=== PATIENT | female | born 1935 | race Caucasian/White ===

== ENCOUNTER 2021-10-17 15:36 | Inpatient (IN) | payer OTHER ==
[~2021-10-17] VITALS: Ht 149.9 cm; Wt 43.1 kg
--- NOTE | 2021-10-17 15:50 | NUR ---
TO ER BED 9, LEOPOLDO LYNCH [facility] FOR ABNORMAL LABS, H&H 3.4 / 12.9, AAOX3, CONNECTED TO MONITOR, AWAITING MD ORDER
--- NOTE | 2021-10-17 16:42 | NUR ---
IV LINE STARTED, BLOOD DRAWN AND SENT TO LAB.
[2021-10-17] MEDS ORDERED: ACET-2605 PO (17:22)
[2021-10-17] MEDS ORDERED: SIME125C81 PO (17:22)
[2021-10-17] MEDS ORDERED: MIRT-121 PO (17:22)
[2021-10-17] MEDS ORDERED: MULT-447 PO (17:22)
[2021-10-17] MEDS ORDERED: ACET325T53 PO (17:22)
[2021-10-17] MEDS ORDERED: ASPI-1169 PO (17:22)
[2021-10-17 17:27] LABS: BASOPHILS # (AUTO) 0.1 K/uL (0.0-0.2); BASOPHILS % (AUTO) 0.8 % (0.0-2.0); EOSINOPHILS % (AUTO) 0.6 % (0.0-6.0); LYMPHOCYTES # (AUTO) 1.7 K/uL (0.8-4.8); MEAN CORPUSCULAR HGB CONC 25 g/dl (31.0-36.0); MEAN CORPUSCULAR VOLUME 55 fL (82-100); MONOCYTES # (AUTO) 1.1 K/uL (0.1-1.30); NEUTROPHILS # (AUTO) 6.6 K/uL (1.8-8.9); NEUTROPHILS % (AUTO) 68.6 % (43.0-81.0); PLATELET COUNT (AUTO) 529 K/uL (150-450); RED BLOOD CELL COUNT(AUTO) 2.51 MIL/uL (4.0-5.2); WHITE BLOOD COUNT (AUTO) 9.6 K/uL (4.3-11.0)
[2021-10-17 17:32] LABS: HEMATOCRIT 14 % (33-45); HEMOGLOBIN 3.5 g/dL (11.5-14.8)
[2021-10-17 17:37] LABS: ALANINE AMINOTRANSFERASE 9 U/L (12-78); ALBUMIN 2.4 g/dL (3.4-5.0); ALKALINE PHOSPHATASE 69 U/L (46-116); ASPARTATE AMINOTRANSFERASE 12 U/L (15-37); BILIRUBIN,TOTAL 0.5 mg/dL (0.2-1.0); CALCIUM, SERUM 8.1 mg/dL (8.5-10.1); CARBON DIOXIDE 22 mmol/L (21-32); CHLORIDE 105 mmol/L (98-107); CREATININE 0.8 mg/dL (0.6-1.3); GLUCOSE 137 mg/dL (74-106); POTASSIUM 4.2 mmol/L (3.5-5.1); SODIUM SERUM 136 mmol/L (136-145); TOTAL PROTEIN, SERUM 6.9 g/dL (6.4-8.2); UREA NITROGEN, BLOOD 22 mg/dL (7-18)
--- NOTE | 2021-10-17 17:52 | NUR ---
COVID SWAB PCR AND ANTIGEN DONE AND SENT
--- NOTE | 2021-10-17 18:12 | NUR ---
[phone] EFREN
--- NOTE | 2021-10-17 18:25 | NUR ---
DR. LOUIS FROM [facility] SPEAKING WITH BALBIR BRADLEY. AUTH GIVEN FOR PT TO STAY. CASE # [id number]
--- NOTE | 2021-10-17 18:37 | NUR ---
MOVE SHEET SUBMITTED AND CALLED FOR TELE BED.
--- NOTE | 2021-10-17 18:40 | NUR ---
[facility] CALLED PARASITOLOGIST PAGED.
--- NOTE | 2021-10-17 19:04 | NUR ---
call from blood bank, 2 units available
--- NOTE | 2021-10-17 19:15 | NUR ---
[facility] CALLED ROLL FORMING SUPERVISOR PAGED.
[2021-10-17 19:35] LABS: BAND % (MANUAL) 1 % (0.0-5.0); EOSINOPHILS % (MANUAL) 1 % (0-4); LYMPHOCYTES % (MANUAL) 16 % (16-48); MONOCYTES % (MANUAL) 6 % (0-11.0); NEUTROPHILS % (MANUAL) 76 (42-76)
--- NOTE | 2021-10-17 19:45 | NUR ---
BLOOD TRANSFUSION INITIATED, V/S STABLE AT THE MOMENT WILL CONTINUE TO MONITOR.
[2021-10-17] MEDS ORDERED: MAGNESIUM HYDROXIDE 30 ML UDC PO PRN (21:00)
[2021-10-17] MEDS ORDERED: MAG HYDROX/AL HYDROX/SIMETH 30 ML UDC PO PRN (21:00)
[2021-10-17] MEDS ORDERED: Z GUARD REMEDY 2 OZ OINT TP PRN (21:00)
[2021-10-17] MEDS ORDERED: ACETAMINOPHEN 325 MG TABLET PO PRN (21:00)
[2021-10-17] MEDS ORDERED: ONDANSETRON HCL/PF 4 MG/2 ML VIAL IVP PRN (21:00)
--- NOTE | 2021-10-17 22:08 | NUR ---
REPORT GIVEN TO ELMIRA VICKERS
--- NOTE | 2021-10-17 22:10 | NUR ---
PATIENT BEING TRANSFERRED TO [facility]
[2021-10-17 22:17] VITALS: BP 137/66
--- NOTE | 2021-10-17 22:17 | NUR ---
CORN LAB TECHNICIAN NOTES PATIENT ADMITTED FROM ER, A/O X3. CAME FROM [facility]. ADMITTED WITH DIAGNOSIS OF ANEMIA. H&H IS 3.5. ORDERED FOR 2 UNITS OF PRBC. ONE GIVEN IN ER AND ONE TO BE GIVEN. PATIENT ON ROOM AIR, O2 SAT 99%. PATIENT ON TELE MONITOR, SR 98. NO SOB, NO DISTRESS NOTED, VITAL SIGNS STABLE, AFEBRILE. RIGHT FOREARM G #20 IV ACCESS INTACT AND PATENT. SKIN AND BODY CHECK DONE, SKIN INTACT. ALL NEEDS ATTENDED TO, WITHIN REACH, BED IS LOWEST POSITION & LOCKED IN PLACE. WILL CONTINUE TO MONITOR
[2021-10-17 23:18] VITALS: BP 137/66
--- NOTE | 2021-10-17 23:18 | NUR ---
tele rnnotes 2nd unit of prbc started at 2318 hrs with ase noted v/s stable afebrile.
[2021-10-17 23:33] VITALS: BP 132/56
[2021-10-18] VITALS (9 sets, daily range): BP systolic 112–144; BP diastolic 48–88
--- NOTE | 2021-10-18 | NUR ---
family member caretaker NOTES PATIENT NOTED PULLING ON IV ACCESS AND ATTEMPTING TO GET OUT OF BED DURING BLOOD TRANSFUSION. PATIENT WAS EDUCATED ON DANGERS OF GETTING OUT OF BED AND PULLING ON IV LINES. WILL CONTINUE TO MONITOR
--- NOTE | 2021-10-18 02:18 | NUR ---
teleprinter installer notes 2nd unit of prbc completed at 0218hrs with no ase noted , will continue to monitor.
[2021-10-18] MEDS: IV NS 0.9% 1,000 ML IV PRN ×2 (02:35→15:36)
--- NOTE | 2021-10-18 04:02 | NUR ---
BILLIARD TABLE REPAIRER NOTES PATIENT REMAINS PULLING ON LINES AND ATTEMPTING TO GET OUT OF BED. DNP CECY BOBBIN DUMPER MADE AWARE, WITH ORDER BILATERAL SOFT WRIST RESTRAINTS. ORDER NOTED AND CARRIED OUT. WILL CONTINUE TO MONITOR.
--- NOTE | 2021-10-18 07:01 | NUR ---
RN CLOSING NOTE: PATIENT STABLE AND SLEEPING IN BED. SATURATING WELL ON ROOM AIR, NO DISTRESS, NO SOB NOTED. BED AT LOWEST POSITION, SIDE RAILS UP X2, CALL LIGHT WITHIN REACH, WILL CONTINUE TO MONITOR WILL ENDORSE TO DAY SHIFT FOR CONTINUITY OF CARE.
--- NOTE | 2021-10-18 07:29 | NUR ---
RN OPENING NOTE PATIENT RECEIVED IN BED, ASLEEP. PATIENT ON ROOM AIR WITH NO SIGNS OF LABORED BREATHING. SOFT WRIST RESTRAINS ON, SKIN WARM AND INTACT. RIGHT FOREARM 20G IV IN PLACE, PATENT WITH NO SIGNS OF INFILTRATION RUNNING NS AT 75 CC/HR. NO SIGNS OF DISTRESS NOTED AT THIS TIME. BED LOCKED AND IN LOWEST POSITION, 2 SIDE RAILS UP, CALL LIGHT WITHIN REACH. WILL CONTINUE TO MONITOR.
[2021-10-18] MEDS: PANTOPRAZOLE 40 MG TABLET.DR PO SCH (07:51)
[2021-10-18 07:54] LABS: BASOPHILS # (AUTO) 0.1 K/uL (0.0-0.2); BASOPHILS % (AUTO) 0.9 % (0.0-2.0); EOSINOPHILS % (AUTO) 0.7 % (0.0-6.0); HEMATOCRIT 22 % (33-45); LYMPHOCYTES # (AUTO) 0.9 K/uL (0.8-4.8); LYMPHOCYTES % (AUTO) 12.1 % (20.0-44.0); MEAN CORPUSCULAR HGB CONC 32 g/dl (31.0-36.0); MEAN CORPUSCULAR VOLUME 69 fL (82-100); MONOCYTES # (AUTO) 0.9 K/uL (0.1-1.30); MONOCYTES % (AUTO) 12.2 % (2.0-12.0); NEUTROPHILS # (AUTO) 5.4 K/uL (1.8-8.9); NEUTROPHILS % (AUTO) 74.1 % (43.0-81.0); PLATELET COUNT (AUTO) 314 K/uL (150-450); RED BLOOD CELL COUNT(AUTO) 3.16 MIL/uL (4.0-5.2); WHITE BLOOD COUNT (AUTO) 7.3 K/uL (4.3-11.0)
[2021-10-18 08:51] LABS: BILIRUBIN,TOTAL 1.8 mg/dL (0.2-1.0); CALCIUM, SERUM 6.8 mg/dL (8.5-10.1); CREATININE 0.6 mg/dL (0.6-1.3); MAGNESIUM 1.9 mg/dL (1.8-2.4); POTASSIUM 3.1 mmol/L (3.5-5.1); TOTAL PROTEIN, SERUM 5.7 g/dL (6.4-8.2)
[2021-10-18] MEDS ORDERED: POTASSIUM CHLORIDE 20 MEQ TAB.PRT.SR PO ONE (09:30)
[2021-10-18 10:14] LABS: LYMPHOCYTES % (MANUAL) 15 % (16-48); MONOCYTES % (MANUAL) 12 % (0-11.0); NEUTROPHILS % (MANUAL) 73 (42-76)
[2021-10-18] MEDS: ENSURE ENLIVE 237 ML LIQUID (VANILLA) PO SCH ×2 (12:55→18:25)
[2021-10-18 13:17] LABS: BASOPHILS # (AUTO) 0.1 K/uL (0.0-0.2); EOSINOPHILS % (AUTO) 1.3 % (0.0-6.0); HEMATOCRIT 25 % (33-45); HEMOGLOBIN 7.8 g/dL (11.5-14.8); LYMPHOCYTES # (AUTO) 1.1 K/uL (0.8-4.8); LYMPHOCYTES % (AUTO) 13.4 % (20.0-44.0); MEAN CORPUSCULAR HGB CONC 32 g/dl (31.0-36.0); MEAN CORPUSCULAR VOLUME 70 fL (82-100); MONOCYTES # (AUTO) 0.6 K/uL (0.1-1.30); MONOCYTES % (AUTO) 8.1 % (2.0-12.0); NEUTROPHILS % (AUTO) 76.2 % (43.0-81.0); PLATELET COUNT (AUTO) 384 K/uL (150-450); WHITE BLOOD COUNT (AUTO) 7.8 K/uL (4.3-11.0)
[2021-10-18 13:30] LABS: EOSINOPHILS % (MANUAL) 1 % (0-4); LYMPHOCYTES % (MANUAL) 15 % (16-48); MONOCYTES % (MANUAL) 9 % (0-11.0); NEUTROPHILS % (MANUAL) 75 (42-76)
--- NOTE | 2021-10-18 18:32 | NUR ---
RN CLOSING NOTE PATIENT IN BED, AWAKE. PATIENT ON ROOM AIR WITH NO SIGNS OF LABORED BREATHING AT THIS TIME. RIGHT FOREARM 20G IV IN PLACE, PATENT WITH NO SIGNS OF INFILTRATION AND RUNNING NS AT 75CC/HR. NO SIGNS OF DISTRESS NOTED AT THIS TIME. BED LOCKED AND IN LOWEST POSITION, CALL LIGHT WITHIN REACH, 3 SIDE RAILS UP. ALL SAFETY MEASURES IMPLEMENTED. WILL ENDORSE TO SECURITIES LENDING TRADER NURSE.
--- NOTE | 2021-10-18 19:27 | NUR ---
RN OPENING NOTES PATIENT ENDORSED BY MORNING SHIFT IN STABLE CONDITIONS. PATIENT IS CURRENTLY IN BED ON ROOM AIR, AWAKE, A/O X2, NO SIGS OF LABORED BREATHING. PATIENT'S RIGHT FOREARM IV ACCESS 20G IS PATIENT AND SHOWS NO SIGNS OF INFILTRATION. IV RUNNING NS AT 75CC/HR. NO SIGNS OF DISTRESS NOTED. HEAD OF BED IS ELEVATED TO 40 DEGREES. BILATERAL SOFT WRIST RESTRAINS REMAIN IN PLACE PER ORDERED TO PREVENT PULLING IV LINES, ALL SAFETY MEASURES IMPLEMENTED, BED IS AT THE LOWEST POSITION WITH WHEELS LOCKED IN PLACE, CALL LIGHT IS WITHIN REACH. WILL CONTINUE TO MONITOR FOR ANY CHANGES THROUGHOUT SHIFT.
[2021-10-19] VITALS: BP 135/72
[2021-10-19 04:00] VITALS: BP 143/75
[2021-10-19] MEDS: IV NS 0.9% 1,000 ML IV PRN ×2 (05:58→21:31)
--- NOTE | 2021-10-19 06:22 | NUR ---
RN CLOSING NOTE: PATIENT STABLE AND SLEEPING IN BED. SATURATING WELL ON ROOM AIR, NO DISTRESS, NO SOB NOTED.REMAINS ON BILATERAL SOFT WRIST RESTRAINT . BED AT LOWEST POSITION, SIDE RAILS UP X2, CALL LIGHT WITHIN REACH, WILL CONTINUE TO MONITOR WILL ENDORSE TO DAY SHIFT FOR CONTINUITY OF CARE.
[2021-10-19 06:25] LABS: BASOPHILS # (AUTO) 0.1 K/uL (0.0-0.2); BASOPHILS % (AUTO) 1.3 % (0.0-2.0); EOSINOPHILS % (AUTO) 2.4 % (0.0-6.0); HEMATOCRIT 24 % (33-45); HEMOGLOBIN 7.5 g/dL (11.5-14.8); LYMPHOCYTES % (AUTO) 11.6 % (20.0-44.0); MEAN CORPUSCULAR HGB CONC 31 g/dl (31.0-36.0); MEAN CORPUSCULAR VOLUME 69 fL (82-100); MONOCYTES # (AUTO) 0.7 K/uL (0.1-1.30); MONOCYTES % (AUTO) 7.9 % (2.0-12.0); NEUTROPHILS # (AUTO) 6.6 K/uL (1.8-8.9); NEUTROPHILS % (AUTO) 76.8 % (43.0-81.0); PLATELET COUNT (AUTO) 303 K/uL (150-450); RED BLOOD CELL COUNT(AUTO) 3.46 MIL/uL (4.0-5.2); WHITE BLOOD COUNT (AUTO) 8.6 K/uL (4.3-11.0)
[2021-10-19 06:28] LABS: CALCIUM, SERUM 7.7 mg/dL (8.5-10.1); CREATININE 0.6 mg/dL (0.6-1.3); PHOSPHORUS 2.7 mg/dL (2.5-4.9); POTASSIUM 3.5 mmol/L (3.5-5.1)
--- NOTE | 2021-10-19 07:29 | NUR ---
RN OPENING NOTE PATIENT RECEIVED IN BED, RESTING. PATIENT ON ROOM AIR WITH NO SIGNS OF LABORED BREATHING AT THIS TIME. TELE MONITOR ON. BILATERAL SOFT WRIST RESTRAINS ON, SKIN INTACT AND WARM. RIGHT HAND 20G IV IN PLACE, PATENT WITH NO SIGNS OF INFILTRATION. NO SIGNS OF DISTRESS NOTED AT THIS TIME. BED LOCKED AND IN LOWEST POSITION, 3 SIDE RAILS UP, CALL LIGHT WITHIN REACH. ALL SAFETY MEASURES. WILL CONTINUE TO MONITOR.
[2021-10-19] MEDS: ENSURE ENLIVE 237 ML LIQUID (VANILLA) PO SCH ×3 (07:55→17:45)
[2021-10-19] MEDS: PANTOPRAZOLE 40 MG TABLET.DR PO SCH (07:55)
[2021-10-19 08:00] VITALS: BP 116/56
[2021-10-19] MEDS ORDERED: PANT40TA49 PO (09:59)
[2021-10-19 12:00] VITALS: BP 135/58
--- NOTE | 2021-10-19 12:59 | NUR ---
RN NOTE REPORT GIVEN TO EHSAN FROM [facility].
[2021-10-19 16:00] VITALS: BP 135/59
--- NOTE | 2021-10-19 18:43 | NUR ---
RN CLOSING NOTE PATIENT IN BED, AWAKE, A&OX2. PATIENT ON ROOM AIR WITH NO SIGNS OF LABORED BREATHING AT THIS TIME. TELE MONITOR ON, SINUS RHYTHM. BILATERAL SOFT WRIST RESTRAINS IN PLACE, SKIN INTACT AND WARM. RIGHT HAND 20G IV IN PLACE, PATENT WITH NO SIGNS OF INFILTRATION. ALL NEEDS ATTENDED DURING SHIFT. NO SIGNS OF DISTRESS NOTED. BED LOCKED AND IN LOWEST POSITION, 3 SIDE RAILS UP, CALL LIGHT WITHIN REACH. ALL SAFETY MEASURES IMPLEMENTED. WILL ENDORSE TO PRODUCT MARKETING SPECIALIST NURSE.
--- NOTE | 2021-10-19 19:43 | NUR ---
RN OPENING NOTES RECEIVED PTS IN BED AWAKE IN BED ON ROOM AIR, A/O X2, NO SIGS OF LABORED BREATHING. PATIENT'S RIGHT HAND IV ACCESS 20G IS PATENT INTACT NO SIGNS OF INFILTRATION. IV RUNNING NS AT 75CC/HR. NO SIGNS OF DISTRESS NOTED. HEAD OF BED IS ELEVATED TO 40 DEGREES. BILATERAL SOFT WRIST RESTRAINS REMAIN IN PLACE PER ORDERED TO PREVENT PULLING IV LINES, ALL SAFETY MEASURES IMPLEMENTED, BED IS AT THE LOWEST POSITION WITH WHEELS LOCKED IN PLACE, CALL LIGHT IS WITHIN REACH. WILL CONTINUE TO MONITOR FOR ANY CHANGES THROUGHOUT SHIFT.
[2021-10-19 20:00] VITALS: BP 139/63
[2021-10-20] VITALS: BP 141/55
[2021-10-20 04:00] VITALS: BP 132/66
--- NOTE | 2021-10-20 06:25 | NUR ---
RN CLOSING NOTE: PATIENT STABLE AND SLEEPING IN BED. SATURATING WELL ON ROOM AIR, NO DISTRESS, NO SOB NOTED.REMAINS ON BILATERAL SOFT WRIST RESTRAINT . BED AT LOWEST POSITION, SIDE RAILS UP X2, CALL LIGHT WITHIN REACH, WILL CONTINUE TO MONITOR WILL ENDORSE TO DAY SHIFT FOR CONTINUITY OF CARE. PTS FOR DISCHARGED TODAY.
[2021-10-20] MEDS: PANTOPRAZOLE 40 MG TABLET.DR PO SCH (07:46)
--- NOTE | 2021-10-20 07:52 | NUR ---
RN OPENING NOTES RECEIVED PTS IN BED AWAKE IN BED ON ROOM AIR, A/O X2, NO SIGS OF LABORED BREATHING. PATIENT'S LEFT HAND IV ACCESS 20G IS PATENT INTACT NO SIGNS OF INFILTRATION. IV RUNNING NS AT 75CC/HR. NO SIGNS OF DISTRESS NOTED. HEAD OF BED IS ELEVATED TO 40 DEGREES. BILATERAL SOFT WRIST RESTRAINS REMAIN IN PLACE PER ORDERED TO PREVENT PULLING IV LINES, ALL SAFETY MEASURES IMPLEMENTED, BED IS AT THE LOWEST POSITION WITH WHEELS LOCKED IN PLACE, CALL LIGHT IS WITHIN REACH. WILL CONTINUE TO MONITOR FOR ANY CHANGES THROUGHOUT SHIFT.
[2021-10-20 08:00] VITALS: BP 140/67
[2021-10-20] MEDS: ENSURE ENLIVE 237 ML LIQUID (VANILLA) PO SCH ×3 (08:26→18:45)
[2021-10-20 12:00] VITALS: BP 129/57
[2021-10-20] MEDS: IV NS 0.9% 1,000 ML IV PRN (13:13)
[2021-10-20 16:00] VITALS: BP 136/61
--- NOTE | 2021-10-20 18:22 | NUR ---
RN CLOSING NOTE: PATIENT STABLE AND SLEEPING IN BED. SATURATING 98%WELL ON ROOM AIR, NO DISTRESS, NO SOB NOTED.REMAINS ON BILATERAL SOFT WRIST RESTRAINT . BED AT LOWEST POSITION, SIDE RAILS UP X2, CALL LIGHT WITHIN REACH, NS RUNNING AT 75ML/HR ON LEFT HAND. WILL CONTINUE TO MONITOR WILL ENDORSE TO NEXT SHIFT FOR CONTINUITY OF CARE.
--- NOTE | 2021-10-20 19:00 | NUR ---
RN NOTE RECEIVED PATIENT IN BED RESTING, A/O X 2 , VERBALLY RESPONSIVE, ON ROOM AIR, SATURATING AT 96%, IV SITE ON LEFT FOREARM, INTACT, PATENT, ON IOV HYDRATION, 75 ML/HER NS. SOFT BILATERAL RESTRAINTS IN PLACE, WILL CHECK EVERY 15MIN FOR SKIN BREAKDOWN AND CIRCULATION. SAFETY MEASURES IMPLEMENTED, BED IN OW POSITION AND LOCKED, HEAD OF THE BED ELEVATED, ID IN PLACE, SIDE RAILS UP ( 3), CALL LIGHT IN REACH. CONTINUE TO MONITOR.
[2021-10-20 20:00] VITALS: BP 147/70
--- NOTE | 2021-10-20 22:00 | NUR ---
Rn Note Patient had pulled out IV line, was able to establish a new IV line on left arm, 20 gauge, flashing easily, with good blood return, no infiltration, running NS 75ml/hr. Patient was changed, new linens, and was given snack to eat. Addendum: 10/20/21 at 2308 by Matilda Fry RN NEW IV LINE IS ON RIGHT FOREARM- NOT LEFT INDICATED ABOVE.PLEASE DISREGARD THE NOTE LOCATION FOR THE NEW IV LINE.
[2021-10-21] VITALS: BP 128/64
[2021-10-21 04:00] VITALS: BP 122/59
[2021-10-21] MEDS: IV NS 0.9% 1,000 ML IV PRN (04:16)
--- NOTE | 2021-10-21 06:35 | NUR ---
RN NOTE PATIENT REMAINS IN BED RESTING, WITH NS RUNNING AT 75ML/HR. PATIENT IS NOT IN DISCOMFORT OR PAIN AT THE TIME. IS A/O *1. BED IN LOW POSITION, WITH THREE SIDE RAILS UP. KEPT PATIENT CLEAN AND DRY THROUGHOUT THE SHIFT. ALL NEEDS MET, WILL ENDORSE THE ONCOMING SHIFT FOR CONTINUOS CARE.
--- NOTE | 2021-10-21 07:30 | NUR ---
RN OPENING NOTES Patient received asleep in bed on room air. Iv site to left forearm running normal saline 75 ml/hr. Noted with bilateral soft wrist restraints and with no breakdown. Restraint free period provided. Bed is in lowest and locked position.Call light with in reach.
[2021-10-21 08:00] VITALS: BP 122/64
[2021-10-21] MEDS: ENSURE ENLIVE 237 ML LIQUID (VANILLA) PO SCH ×2 (08:00→12:42)
[2021-10-21] MEDS: PANTOPRAZOLE 40 MG TABLET.DR PO SCH (10:10)
[2021-10-21 12:00] VITALS: BP 125/62
--- NOTE | 2021-10-21 16:52 | NUR ---
Patient was discharged to [facility]. Patient is alert and oriented and no c/o sob, IV removed and no s/s of bleeding. Report given to aurora KU.
== END 2021-10-21 18:38 | DRG 374 ==
LOC: ER 15:53 → TELE1 21:12
PROVIDERS: ADMIT Hospitalist; ATTEND Nurse Practitioner Acute Care
PROC: 30233N1 Transfusion of Nonautologous Red Blood Cells into Peripheral Vein, Percutaneous Approach (ICD-10-PCS; principal; 2021-10-17)
DX: C18.9 Malignant neoplasm of colon, unspecified (principal); E43 Unspecified severe protein-calorie malnutrition; K92.2 Gastrointestinal hemorrhage, unspecified; Z68.1 Body mass index [BMI] 19.9 or less, adult; D62 Acute posthemorrhagic anemia; Z66 Do not resuscitate; F03.90 Unspecified dementia, unspecified severity, without behavioral disturbance, psychotic disturbance, mood disturbance, and anxiety; E88.09 Other disorders of plasma-protein metabolism, not elsewhere classified; Z20.822 Contact with and (suspected) exposure to COVID-19; D63.0 Anemia in neoplastic disease
CPT/HCPCS: 36415; 80048-TC; 80053-TC; 80202-TC; 83540-TC; 83735-TC; 84100-TC; 84484-TC; 85025-TC; 85730-TC; 86850-TC; 87081-TC; C9803; G0378; J7030; J7050; P9016; U0003

== ENCOUNTER 2021-11-02 17:17 | Emergency (ER) | payer OTHER ==
[~2021-11-02] VITALS: Ht 162.6 cm; Wt 44.1 kg
[~2021-11-02 17:17] MED LIST: ACET-2605 PO; ACET325T53 PO; MIRT-121 PO; MULT-447 PO; PANT40TA49 PO; SIME125C81 PO
--- NOTE | 2021-11-02 17:17 | NUR ---
BIBPA FOR POSSIBLE GLF. NOTED BUMP ON BACK OF THE HEAD. PT IS A&OX1; ONLY KNOWS OF HER NAME. PT IS HYPOTENSIVE; OTHER VITALS ARE WITHIN NORMAL LIMITS. PT BREATHING IN REGULAR AND UNLABORED. PT ATTCHED TO MULE RIDER AND PULSE OX.
--- NOTE | 2021-11-02 17:21 | NUR ---
DR TRIANA AT BEDSIDE
[2021-11-02] MEDS ORDERED: IV NS 0.9% 1,000 ML BAG IV ONE (18:00)
--- NOTE | 2021-11-02 18:08 | NUR ---
PT RETURNED TO ER BED [address]
--- NOTE | 2021-11-02 20:27 | NUR ---
[facility] ETA 2129
--- NOTE | 2021-11-02 20:55 | NUR ---
Don sinha in ED - 11/02/21 at 2056 by SANDY REPORT GIVEN TO EMS AT BEDSIDE
--- NOTE | 2021-11-02 20:56 | NUR ---
REPORT GIVEN TO EMS AT BEDSIDE
--- NOTE | 2021-11-02 21:14 | NUR ---
PT WAS PICKED UP BY [facility] AND WAS TRANSFERRED TO THE SNF IN STABLE CONDITION
[2021-11-02 21:49] VITALS: BP 121/66
== END 2021-11-02 21:15 ==
LOC: ER 17:21
DX: F03.90 Unspecified dementia, unspecified severity, without behavioral disturbance, psychotic disturbance, mood disturbance, and anxiety (principal); R22.0 Localized swelling, mass and lump, head; K21.9 Gastro-esophageal reflux disease without esophagitis; F41.9 Anxiety disorder, unspecified; F32.9 Major depressive disorder, single episode, unspecified; D64.9 Anemia, unspecified; Z79.899 Other long term (current) drug therapy; W18.39XA Other fall on same level, initial encounter; Y93.89 Activity, other specified; Y92.89 Other specified places as the place of occurrence of the external cause; Y99.8 Other external cause status
CPT/HCPCS: 70450; 72125; 99284; J7030

== ENCOUNTER 2022-01-07 14:37 | Emergency (ER) | payer OTHER ==
[~2022-01-07] VITALS: Ht 152.4 cm; Wt 44.0 kg
--- NOTE | 2022-01-07 15:01 | NUR ---
IV ESTABLISHED 20G L FOREARM. LABS COLLECTED AND SENT.
[2022-01-07] MEDS ORDERED: IV NS 0.9% 1,000 ML BAG IV ONE (15:30)
[2022-01-07] MEDS ORDERED: PANT40TA2 PO (15:32)
[2022-01-07] MEDS ORDERED: ACET-2605 PO (15:32)
[2022-01-07 15:50] LABS: BASOPHILS # (AUTO) 0.1 K/uL (0.0-0.2); BASOPHILS % (AUTO) 0.9 % (0.0-2.0); EOSINOPHILS % (AUTO) 0.9 % (0.0-6.0); LYMPHOCYTES # (AUTO) 0.9 K/uL (0.8-4.8); LYMPHOCYTES % (AUTO) 9.3 % (20.0-44.0); MEAN CORPUSCULAR HGB CONC 30 g/dl (31.0-36.0); MEAN CORPUSCULAR VOLUME 64 fL (82-100); MONOCYTES # (AUTO) 0.9 K/uL (0.1-1.30); NEUTROPHILS % (AUTO) 79.9 % (43.0-81.0); PLATELET COUNT (AUTO) 452 K/uL (150-450); RED BLOOD CELL COUNT(AUTO) 2.82 MIL/uL (4.0-5.2)
[2022-01-07 15:54] LABS: HEMOGLOBIN 5.5 g/dL (11.5-14.8)
[2022-01-07 15:55] LABS: HEMATOCRIT 18 % (33-45)
--- NOTE | 2022-01-07 16:03 | NUR ---
CALLED [facility] AND OPENED UP CASE FOR THE PT
[2022-01-07 16:04] LABS: CARBON DIOXIDE 24 mmol/L (21-32); CHLORIDE 107 mmol/L (98-107); CREATININE 0.5 mg/dL (0.6-1.3); GLUCOSE 121 mg/dL (74-106); SODIUM SERUM 136 mmol/L (136-145); UREA NITROGEN, BLOOD 20 mg/dL (7-18)
[2022-01-07 16:10] LABS: ALANINE AMINOTRANSFERASE 6 U/L (12-78); ALBUMIN 2.1 g/dL (3.4-5.0); ALKALINE PHOSPHATASE 81 U/L (46-116); ASPARTATE AMINOTRANSFERASE 12 U/L (15-37); BILIRUBIN,DIRECT 0.1 mg/dL (0.0-0.2); BILIRUBIN,TOTAL 0.2 mg/dL (0.2-1.0); TOTAL PROTEIN, SERUM 6.8 g/dL (6.4-8.2)
--- NOTE | 2022-01-07 17:23 | NUR ---
COVID TEST COLLECTED AND SENT
--- NOTE | 2022-01-07 18:30 | NUR ---
CONSENT FOR BLOOD TRANSFUSION SIGNED BY PT SIGN AT BEDSIDE
--- NOTE | 2022-01-07 19:04 | NUR ---
SON MARILU REQUESTED THAT HE BE NOTIFIED WHEN PT IS TRANSFERRED [phone]. HE GAVE AN ADDITIONAL CONTACT, PT'S DAUGHTER CARY [phone]
--- NOTE | 2022-01-07 19:30 | NUR ---
REVCEIVED REPORT FOR RIKA FROM ELMIRA HOBSON. PT RUNNING BLOOD TRANSFUSION, VSS, NO REACTION NOTED.
--- NOTE | 2022-01-07 19:50 | NUR ---
DELILAH FROM [facility] UPDATED WITH COVID RESULTS
--- NOTE | 2022-01-07 20:14 | NUR ---
called yovani escalerap for F/U. pt is going to [facility]. looking for bed
--- NOTE | 2022-01-07 20:45 | NUR ---
TRANSFER INFO: [facility] / ADMITTING DR. COX / DIRECT ADMIT TO TELE [id number] NUMBER FOR REPORT: ETA [facility] 2200.
[2022-01-07 21:00] VITALS: BP 128/73
--- NOTE | 2022-01-07 21:10 | NUR ---
REPORT GIVEN TO ELMIRA BALDERAS AT [facility]
--- NOTE | 2022-01-07 22:02 | NUR ---
REPORT GIVEN AT BEDSIDE TO EMS
--- NOTE | 2022-01-07 22:07 | NUR ---
Patient Tranfers to outside Facility [facility]
== END 2022-01-07 22:10 | disposition short-term general hospital (02) ==
LOC: ER 14:40
DX: D64.9 Anemia, unspecified (principal); C18.9 Malignant neoplasm of colon, unspecified; K21.9 Gastro-esophageal reflux disease without esophagitis; F03.90 Unspecified dementia, unspecified severity, without behavioral disturbance, psychotic disturbance, mood disturbance, and anxiety; F32.A Depression, unspecified; R00.0 Tachycardia, unspecified; Z20.822 Contact with and (suspected) exposure to COVID-19
CPT/HCPCS: 36415; 36430; 71045; 80048; 80076; 84484; 85007; 85025; 85730; 86850; 86923; 87426; 93005; 96365; 99291; C9803; J7030; J7050; P9016